=== PATIENT | female | born 1945 | race Caucasian/White ===

== ENCOUNTER 2019-03-31 08:15 | Day surgery (SDC) | payer OTHER ==
[~2019-03-31] VITALS: Ht 162.6 cm; Wt 91.1 kg
[~2019-03-31 08:15] MED LIST: ASCO500 PO; ASPI81CH PO; ATOR20 PO; CHOL10002 PO; DICL75ER PO; FISH OIL PO; FOLATE; IRON PO; MAGNESIUM; MAGNESIUM PO; METAMUCIL0.4 GM PO; POTASSIUM GLUCO90 MG PO; Tambocor100 MG PO; VITAMIN B; VITAMIN B122500 MC1 PO; ZINC PO; Zantac150 MG PO; [UNRECOGNIZED DRUG - OTHER] PO
--- NOTE | 2019-03-31 09:40 | NUR ---
Ambulatory in Day Surgery History, Chart, Medications and Allergies reviewed before start of procedure.Patient confirms NPO status and agrees with scheduled surgery. Lungs clear T/O to Auscultation. Patient reports completing Chlorhexadine shower X2 prior to admission to hospital.Surgical site prepped with 2% Chlorhexidine cloth wipe.
--- NOTE | 2019-03-31 12:30 | NUR ---
1145- 128ML IN BLADDER PER SCANNER.
--- NOTE | 2019-03-31 14:05 | NUR ---
DR INIGUEZ HERE TO SEE PT. FAMILY PRESENT.
--- NOTE | 2019-03-31 19:45 | NUR ---
SHIFT SUMMARY PT HAD PROCEDURE TODAY. PT EATING AND DRINKING, VOIDING. PT BEEN ASSISTED WITH ADL'S PRN. PT AMBULATED IN HALLWAY WITH WALKER, GB, AND ASSIST. PT BEEN MED PRN FOR PAIN. FAMILY IN ROOM MOST OF DAY. TEDS, PAS, POLAR PAC IN PLACE.
--- NOTE | 2019-04-01 04:27 | NUR ---
SHIFT SUMMARY: PT POD #1 FOR RT TKA. MILLA WRAP CDI WITH POLAR PACK IN PLACE. A&O X4 T/O SHIFT, VS WNL. PT OOB SEVERAL TIMES TO BATHROOM W/FWW+GB. VOIDING WELL. CHACHA ACTIVITY. WBAT. PAIN WELL MANAGED WITH 5MG OXY AND SCHED TORADOL + TYLENOL. NO CONCERNS AT THIS TIME.
[2019-04-01 04:40] LABS: BASOPHILS ABSOLUTE AUTO 0.03 K/mm3 (0.00-0.23); BASOPHILS PERCENT AUTO 0 % (0-2); EOSINOPHILS ABSOLUTE AUTO 0.01 K/mm3 (0.00-0.68); EOSINOPHILS PERCENT AUTO 0 % (0-6); Hematocrit 33.5 % (33.0-51.0); Hemoglobin 10.6 g/dL (11.5-16.0); IMMATURE GRAN ABSOLUTE AUTO 0.04 K/mm3 (0.00-0.10); IMMATURE GRAN PERCENT AUTO 0 % (0-1); LYMPHOCYTES ABSOLUTE AUTO 1.49 K/mm3 (0.84-5.20); LYMPHOCYTES PERCENT AUTO 12 % (21-46); MONOCYTES ABSOLUTE AUTO 1.07 K/mm3 (0.16-1.47); MONOCYTES PERCENT AUTO 9 % (4-13); Mean Corpuscular HGB 30.7 pg (26.0-34.0); Mean Corpuscular HGB Conc 31.6 g/dL (31.5-36.5); Mean Corpuscular Volume 97 fL (80-100); Mean Platelet Volume 11.5 fL (9.1-12.4); NEUTROPHILS ABSOLUTE AUTO 9.77 K/mm3 (1.96-9.15); NEUTROPHILS PERCENT AUTO 79 % (41-73); Platelet Count 209 K/mm3 (150-400); RDW Coefficient Variation 13.4 % (11.7-14.2); RDW Standard Deviation 48.2 fL (35.1-46.3); Red Blood Cell Count 3.45 M/mm3 (3.80-5.20); White Blood Cell Count 12.41 K/mm3 (4.00-11.30)
[2019-04-01 04:59] LABS: Anion Gap 5 mmol/L (6-16); Blood Urea Nitrogen 17 mg/dL (8-24); Bun/Creatinine Ratio 20.9 (12.0-20.0); CO2, Blood 27 mmol/L (21-32); Calcium, Blood 8.5 mg/dL (8.5-10.1); Chloride, Blood 109 mmol/L (98-108); Creatinine, Blood 0.81 mg/dL (0.40-1.00); Glomerular Filtration Rate >60 (60-); Glucose, Blood 108 mg/dL (70-99); Potassium, Blood 4.2 mmol/L (3.5-5.5); Sodium, Blood 141 mmol/L (136-145)
[2019-04-01] MEDS ORDERED: Ferrous Sulfat325 M2 PO (08:26)
[2019-04-01] MEDS ORDERED: Percocet 5-3251 EACH PO (08:26)
--- NOTE | 2019-04-01 12:47 | NUR ---
1220 DISCHARGE DISCHARGE INSTRUCTIONS REVIEWED WITH PATIENT AND QUESTIONS ANSWERED. PATIENT DISCHARGED TO [facility] WITH
== END 2019-04-01 12:23 | disposition home or self-care (01) ==
LOC: ORSCMMR 08:15 → ORD 10:00 → ORSCMMR 10:30 → SURS 12:34 → ORSCMMR 22:48 → SURS 23:28 → ORSCMMR 04-01 12:23 → SURS 04-01 12:23
PROVIDERS: Orthopaedic Surgery
PROC: 0SRC0JA Replacement of Right Knee Joint with Synthetic Substitute, Uncemented, Open Approach (ICD-10-PCS; principal; 2019-03-31 10:30)
DX: M17.11 Unilateral primary osteoarthritis, right knee (principal); Z01.818 Encounter for other preprocedural examination; R00.2 Palpitations; K21.9 Gastro-esophageal reflux disease without esophagitis; Z87.891 Personal history of nicotine dependence; Z79.899 Other long term (current) drug therapy; Z79.82 Long term (current) use of aspirin
CPT/HCPCS: 36415; 73560-RT; 80048; 85025; 86850; 86900; 86901; 88300; 97110; 97116; 97162; 97530; C1713; C1776; J0171; J0690; J1100; J1885; J2250; J2405; J2704; J2795; J3010; J7120

== ENCOUNTER 2019-07-07 10:43 | Day surgery (SDC) | payer OTHER ==
[~2019-07-07] VITALS: Ht 162.6 cm; Wt 90.1 kg
[~2019-07-07 10:43] MED LIST changes: +Ferrous Sulfat325 M2 PO; +Percocet 5-3251 EACH PO
--- NOTE | 2019-07-07 11:48 | NUR ---
History, Chart, Medications and Allergies reviewed before start of procedure. Patient confirms NPO status and agrees with scheduled surgery. Lungs clear T/O to Auscultation. Pre-Op teaching done. Pt verbalizes understanding. Patient reports completing Chlorhexadine shower X2 prior to admission to hospital. PATIENT HAD NO JEWELRY ON AT ADMIT TO [facility]. PATIENT STATES THAT LAST TIME SHE WAS HERE SHE WAS ALLOWED TO LEAVE HER DENTURE IN PLACE.
--- NOTE | 2019-07-07 11:52 | NUR ---
REPORT TO WINSTON ROBERT TO RESUME CARE OF PATIENT.
--- NOTE | 2019-07-07 19:17 | NUR ---
SHIFT SUMMARY PT EATING AND DRINKING, VOIDING. CONT TO DENY PAIN. BEEN ASSISTED WITH ADL'S PRN. FAMILY CONT TO BE IN ROOM.
--- NOTE | 2019-07-07 19:19 | NUR ---
PT USING CALL LIGHT APPR. PT HAS TEDS, PAS, AND POLAR PAC IN PLACE.
--- NOTE | 2019-07-08 02:11 | NUR ---
ASSUMED CARE OF PT. PT APPEARS TO BE SLEEPING IN BED, RESP E/U, NO DISTRESS NOTED. WILL CONT TO MONITOR ADN TX PER ORDERS.
[2019-07-08 03:52] LABS: BASOPHILS ABSOLUTE AUTO 0.07 K/mm3 (0.00-0.23); BASOPHILS PERCENT AUTO 1 % (0-2); EOSINOPHILS ABSOLUTE AUTO 0.04 K/mm3 (0.00-0.68); EOSINOPHILS PERCENT AUTO 0 % (0-6); Hematocrit 34.2 % (33.0-51.0); IMMATURE GRAN ABSOLUTE AUTO 0.05 K/mm3 (0.00-0.10); IMMATURE GRAN PERCENT AUTO 1 % (0-1); LYMPHOCYTES PERCENT AUTO 9 % (21-46); MONOCYTES ABSOLUTE AUTO 0.87 K/mm3 (0.16-1.47); MONOCYTES PERCENT AUTO 8 % (4-13); Mean Corpuscular HGB 30.4 pg (26.0-34.0); Mean Corpuscular HGB Conc 32.2 g/dL (31.5-36.5); Mean Platelet Volume 11.9 fL (9.1-12.4); NEUTROPHILS ABSOLUTE AUTO 8.59 K/mm3 (1.96-9.15); NEUTROPHILS PERCENT AUTO 81 % (41-73); Platelet Count 195 K/mm3 (150-400); RDW Coefficient Variation 13.6 % (11.7-14.2); RDW Standard Deviation 47.8 fL (35.1-46.3); Red Blood Cell Count 3.62 M/mm3 (3.80-5.20); White Blood Cell Count 10.62 K/mm3 (4.00-11.30)
[2019-07-08 03:56] LABS: Mean Corpuscular Volume 95 fL (80-100)
[2019-07-08 04:10] LABS: Anion Gap 7 mmol/L (6-16); Blood Urea Nitrogen 16 mg/dL (8-24); Bun/Creatinine Ratio 21.4 (12.0-20.0); CO2, Blood 25 mmol/L (21-32); Calcium, Blood 8.3 mg/dL (8.5-10.1); Chloride, Blood 108 mmol/L (98-108); Creatinine, Blood 0.75 mg/dL (0.40-1.00); Glomerular Filtration Rate >60 (60-); Glucose, Blood 112 mg/dL (70-99); Magnesium, Blood 1.9 mg/dL (1.6-2.4); Potassium, Blood 3.9 mmol/L (3.5-5.5); Sodium, Blood 140 mmol/L (136-145)
--- NOTE | 2019-07-08 04:58 | NUR ---
POD 1 S/P L TKA. PT VSS T/O NIGHT. DRESSINGS CDI. CIRC CHECKS WNL. PAIN MGD PER EMAR W/REP RELIEF. PT CHACHA REG PO, IS VOIDING URINE W/O DIFFICULTY. PT UP OOB W/FWW+SBA; CHACHA WELL. PT USING CALL LIGHT FOR ASSISTANCE, WILL CONT TO MONITOR UNTIL REP GIVEN TO ONCOMING RN.
--- NOTE | 2019-07-08 07:43 | NUR ---
07/08/19 0743 Eli Higgins VERIFICATIONS: EDIT CHART.
[2019-07-08] MEDS ORDERED: Aspirin EC81 MG PO (09:45)
[2019-07-08] MEDS ORDERED: Percocet 5-3251 EACH PO (09:45)
--- NOTE | 2019-07-08 10:39 | NUR ---
DISCHARGE; PT EATING AND DRINKING WELL. PT BEEN SEEN BY DR INIGUEZ AND WAYNE THIS AM. PT BEEN CLEARED BY THERAPY TO GO HOME. PT VOIDING AND PASSING GAS. PT PAIN CONTROLLED ON PO PAIN MEDICATION. PT REPORTS HAVING APPR EQUIP AT HOME AND HAS USED ICE MACHINE AND IS QUITE AWARE OF HOW TO USE IT. PT SENT WITH BELONGINGS AND DRESSING SUPPLIES.
== END 2019-07-08 10:40 | disposition home or self-care (01) ==
LOC: ORSCMMR 10:43 → ORD 12:30 → SURS 15:20 → ORSCMMR 07-08 10:40
PROVIDERS: Orthopaedic Surgery
PROC: 0SRD0JA Replacement of Left Knee Joint with Synthetic Substitute, Uncemented, Open Approach (ICD-10-PCS; principal; 2019-07-07 12:30)
DX: M17.12 Unilateral primary osteoarthritis, left knee (principal); Z01.818 Encounter for other preprocedural examination; I10 Essential (primary) hypertension; I47.1 Supraventricular tachycardia; Z79.899 Other long term (current) drug therapy; Z79.82 Long term (current) use of aspirin; E66.9 Obesity, unspecified; Z68.34 Body mass index [BMI] 34.0-34.9, adult
CPT/HCPCS: 36415; 73560-LT; 80048; 83735; 85025; 86850; 86900; 86901; 88300; 97110; 97116; 97161; C1776; J0171; J0690; J0735; J1885; J2250; J2405; J2704; J2795; J7120

== ENCOUNTER 2019-11-10 04:46 | Emergency (ER) | payer OTHER ==
[~2019-11-10] VITALS: Ht 165.1 cm; Wt 90.3 kg
[~2019-11-10 04:46] MED LIST changes: +Aspirin EC81 MG PO
[2019-11-10] MEDS ORDERED: DICL25ER PO (05:00)
[2019-11-10] MEDS ORDERED: "\\\"STATIN\\\"" (05:01)
[2019-11-10 08:08] LABS: BASOPHILS ABSOLUTE AUTO 0.11 K/mm3 (0.00-0.23); BASOPHILS PERCENT AUTO 1 % (0-2); EOSINOPHILS ABSOLUTE AUTO 0.15 K/mm3 (0.00-0.68); EOSINOPHILS PERCENT AUTO 2 % (0-6); Hematocrit 42.7 % (33.0-51.0); Hemoglobin 13.8 g/dL (11.5-16.0); IMMATURE GRAN ABSOLUTE AUTO 0.03 K/mm3 (0.00-0.10); IMMATURE GRAN PERCENT AUTO 0 % (0-1); LYMPHOCYTES ABSOLUTE AUTO 2.13 K/mm3 (0.84-5.20); LYMPHOCYTES PERCENT AUTO 24 % (21-46); MONOCYTES ABSOLUTE AUTO 0.54 K/mm3 (0.16-1.47); MONOCYTES PERCENT AUTO 6 % (4-13); Mean Corpuscular HGB 30.3 pg (26.0-34.0); Mean Corpuscular HGB Conc 32.3 g/dL (31.5-36.5); Mean Corpuscular Volume 94 fL (80-100); Mean Platelet Volume 11.7 fL (9.1-12.4); NEUTROPHILS ABSOLUTE AUTO 6.05 K/mm3 (1.96-9.15); NEUTROPHILS PERCENT AUTO 67 % (41-73); Platelet Count 258 K/mm3 (150-400); RDW Coefficient Variation 14.5 % (11.7-14.2); RDW Standard Deviation 49.8 fL (35.1-46.3); Red Blood Cell Count 4.56 M/mm3 (3.80-5.20); White Blood Cell Count 9.01 K/mm3 (4.00-11.30)
[2019-11-10 08:58] LABS: Alanine Aminotransfer (ALT/SGP 17 U/L (12-78); Albumin, Blood 3.4 g/dL (3.4-5.0); Albumin/Globulin Ratio 1.1 (0.8-1.8); Alk Phos 130 U/L (50-136); Anion Gap 6 mmol/L (6-16); Aspartate Aminotrans (AST/SGOT 17 U/L (12-37); Bilirubin, Total 0.7 mg/dL (0.1-1.0); Blood Urea Nitrogen 12 mg/dL (8-24); Bun/Creatinine Ratio 17.5 (12.0-20.0); CO2, Blood 25 mmol/L (21-32); Calcium, Blood 9.1 mg/dL (8.5-10.1); Chloride, Blood 110 mmol/L (98-108); Creatinine, Blood 0.69 mg/dL (0.40-1.00); Globulin, Blood 3.2 g/dL (2.2-4.0); Glomerular Filtration Rate >60 (60-); Glucose, Blood 83 mg/dL (70-99); Potassium, Blood 3.9 mmol/L (3.5-5.5); Sodium, Blood 141 mmol/L (136-145); Total Protein, Blood 6.6 g/dL (6.4-8.2)
[2019-11-10] MEDS ORDERED: Miralax17 GM PO (09:08)
[2019-12-15] MEDS ORDERED: OMEPRAZOLE20 MG PO (10:55)
[2019-12-15] MEDS ORDERED: CENTRUM SILVER1 EAC2 PO (10:56)
[2019-12-15] MEDS ORDERED: FISH OIL 1,0001 EAC1 PO (10:58)
== END 2019-11-10 09:23 | disposition home or self-care (01) ==
LOC: ER 04:46
PROVIDERS: Emergency Medicine
DX: K59.00 Constipation, unspecified (principal); Z88.5 Allergy status to narcotic agent; Z79.899 Other long term (current) drug therapy; Z79.82 Long term (current) use of aspirin
CPT/HCPCS: 36415; 74018; 80053; 85025; 96360; 99283-25; J7120

== ENCOUNTER → 2019-11-27 | Outpatient (CLI) | payer OTHER ==
[~2019-11-27] MED LIST changes: +"\\\"STATIN\\\""; +CENTRUM SILVER1 EAC2 PO; +DICL25ER PO; +FISH OIL 1,0001 EAC1 PO; +METAMUCIL660 GM PO; +Miralax17 GM PO; +OMEPRAZOLE20 MG PO
== END | disposition home or self-care (01) ==
LOC: LAB SHORT 11:05 → LAB 11:05
DX: R10.12 Left upper quadrant pain (principal)
CPT/HCPCS: 87338

== ENCOUNTER 2019-12-19 07:01 | Day surgery (SDC) | payer OTHER ==
[~2019-12-19] VITALS: Ht 162.6 cm; Wt 90.0 kg
[~2019-12-19 07:01] MED LIST changes: -METAMUCIL660 GM PO
[2019-12-19] MEDS ORDERED: METAMUCIL660 GM PO (07:20)
--- NOTE | 2019-12-19 08:15 | NUR ---
12/19/19 0815 Jordon Priest History, Chart, Medications and Allergies reviewed before start of procedure.MONITOR INTACT WITH CONTINUOUS PULSE OXIMETRY AND INTERMITTENT BP.3-LEAD EKG REVIEWED WITH PHYSICIAN PRIOR TO START OF PROCEDURE.O2 VIA N/C INTACT THROUGHOUT SEDATION/PROCEDURE. Patient confirms NPO status and agrees with scheduled surgery.PATIENT DETERMINED TO BE ASA APPROPRIATE FOR PROPOFOL SEDATION PRIOR TO START OF PROCEDURE BY DR. KARIMI.
--- NOTE | 2019-12-19 08:56 | NUR ---
IV DC TIP INTACT. PT AMBULATED TO BATHROOM AND BACK -STEADY ON FEET. OUT TO GET CAR. PT DC HOME VIA WC WITH TO DRIVE HER.
== END 2019-12-19 22:43 | disposition home or self-care (01) ==
LOC: ORSCMMR 07:01 → ORD 08:00 → ORSCMMR 08:00
PROVIDERS: Internal Medicine Gastroenterology
PROC: 0DB88ZX Excision of Small Intestine, Via Natural or Artificial Opening Endoscopic, Diagnostic (ICD-10-PCS; principal; 2019-12-19 08:00)
PROC: 0DB68ZX Excision of Stomach, Via Natural or Artificial Opening Endoscopic, Diagnostic (ICD-10-PCS; principal; 2019-12-19 08:00)
DX: R10.13 Epigastric pain (principal); Z98.84 Bariatric surgery status; I47.9 Paroxysmal tachycardia, unspecified; I25.10 Atherosclerotic heart disease of native coronary artery without angina pectoris; E78.00 Pure hypercholesterolemia, unspecified; Z87.891 Personal history of nicotine dependence; Z79.82 Long term (current) use of aspirin; Z79.899 Other long term (current) drug therapy
CPT/HCPCS: 88305; 88342; J2704; J7120

== ENCOUNTER 2020-01-07 11:11 | Inpatient (IN) | payer OTHER ==
[~2020-01-07] VITALS: Ht 162.6 cm; Wt 89.4 kg
[~2020-01-07 11:11] MED LIST changes: -CHOL10002 PO; +METAMUCIL660 GM PO; +VITAMIN B-121000 MC3 PO; -VITAMIN B122500 MC1 PO; +VITAMIN D35000 UNI2 PO
[2020-01-07 11:44] LABS: BASOPHILS ABSOLUTE AUTO 0.14 K/mm3 (0.00-0.23); BASOPHILS PERCENT AUTO 2 % (0-2); EOSINOPHILS ABSOLUTE AUTO 0.27 K/mm3 (0.00-0.68); EOSINOPHILS PERCENT AUTO 3 % (0-6); Hematocrit 44.2 % (33.0-51.0); Hemoglobin 14.1 g/dL (11.5-16.0); IMMATURE GRAN ABSOLUTE AUTO 0.02 K/mm3 (0.00-0.10); IMMATURE GRAN PERCENT AUTO 0 % (0-1); LYMPHOCYTES ABSOLUTE AUTO 2.85 K/mm3 (0.84-5.20); LYMPHOCYTES PERCENT AUTO 32 % (21-46); MONOCYTES ABSOLUTE AUTO 0.64 K/mm3 (0.16-1.47); MONOCYTES PERCENT AUTO 7 % (4-13); Mean Corpuscular HGB 31.1 pg (26.0-34.0); Mean Corpuscular HGB Conc 31.9 g/dL (31.5-36.5); Mean Corpuscular Volume 98 fL (80-100); NEUTROPHILS PERCENT AUTO 56 % (41-73); Platelet Count 263 K/mm3 (150-400); RDW Coefficient Variation 14.6 % (11.7-14.2); RDW Standard Deviation 52.8 fL (35.1-46.3); Red Blood Cell Count 4.53 M/mm3 (3.80-5.20); White Blood Cell Count 8.92 K/mm3 (4.00-11.30)
[2020-01-07 11:55] LABS: Alanine Aminotransfer (ALT/SGP 21 U/L (12-78); Albumin, Blood 3.5 g/dL (3.4-5.0); Alk Phos 139 U/L (50-136); Anion Gap 7 mmol/L (6-16); Aspartate Aminotrans (AST/SGOT 23 U/L (12-37); Bilirubin, Total 0.5 mg/dL (0.1-1.0); Blood Urea Nitrogen 20 mg/dL (8-24); Bun/Creatinine Ratio 22.9 (12.0-20.0); CO2, Blood 24 mmol/L (21-32); Calcium, Blood 9.1 mg/dL (8.5-10.1); Chloride, Blood 112 mmol/L (98-108); Creatinine, Blood 0.87 mg/dL (0.40-1.00); Globulin, Blood 3.4 g/dL (2.2-4.0); Glomerular Filtration Rate >60 (60-); Glucose, Blood 97 mg/dL (70-99); Magnesium, Blood 2.1 mg/dL (1.6-2.4); Potassium, Blood 4.2 mmol/L (3.5-5.5); Sodium, Blood 143 mmol/L (136-145); Total Protein, Blood 6.9 g/dL (6.4-8.2)
[2020-01-07 11:56] LABS: Troponin I <0.015 ng/mL (0.000-0.040)
[2020-01-07 14:35] LABS: U Amphetamine Screen Not Detected; U Barbituate Screen Not Detected; U Benzodiazapine Screen Not Detected; U Buprenorphine Screen Not Detected; U Cannabinoids Screen Not Detected; U Cocaine Screen Not Detected; U Methadone Screen Not Detected; U Methamphetamine Screen Not Detected; U Opiates Screen Not Detected; U Oxycodone Screen Not Detected; U Phencyclidine Screen Not Detected; U Propoxyphene Screen Not Detected
--- NOTE | 2020-01-07 17:53 | NUR ---
SUMMARY PT IS CURRENTLY SITTING UP IN BED EATING DINNER AND VISITING WITH HER AT THE BEDSIDE. PT DENIES CP/SOB, VSS, ON ROOM AIR, HR NSR AT THIS TIME, AMIODORONE GTT INFUSING @ 1MG/MIN PER EMAR. PT WILL BE NPO @ 0000 FOR ECHO/STRESS TEST IN THE AM. PT IS A&O X4. CALL LIGHT IN REACH,[facility] AND REPORT TO DAYANARA ROBERT.
--- NOTE | 2020-01-07 20:30 | NUR ---
ASSUMED CARE APPROXIMATELY 1900; PT A&O; LAUGHING W/ SPOUSE AT BEDSIDE; PT DENIES CHEST PAIN; DENIES SOB; O2 SATS >94 ON RA; PT EDUCATED ON NPO STATUS AT MIDNIGHT; PT EDUCATED ON AMIODORONE GTT @ 0.5; DR. CRAMER NOTIFIED @ 2024 OF HR OF 49-57 NOTED ON TELE; PT ASSYMPTOMATIC; ORDERS TO MAINTAIN AMIO GTT; FAMILY CURRENTLY AT BEDSIDE; PT DENIES NEEDS; CALL LIGHT IN REACH; BED IN LOWEST POSITION
[2020-01-08 04:25] LABS: Hematocrit 35.3 % (33.0-51.0); Hemoglobin 11.2 g/dL (11.5-16.0); Mean Corpuscular HGB 30.7 pg (26.0-34.0); Mean Corpuscular HGB Conc 31.7 g/dL (31.5-36.5); Mean Corpuscular Volume 97 fL (80-100); Platelet Count 195 K/mm3 (150-400); RDW Coefficient Variation 14.7 % (11.7-14.2); Red Blood Cell Count 3.65 M/mm3 (3.80-5.20); White Blood Cell Count 8.19 K/mm3 (4.00-11.30)
[2020-01-08 04:46] LABS: Alanine Aminotransfer (ALT/SGP 17 U/L (12-78); Albumin, Blood 2.9 g/dL (3.4-5.0); Albumin/Globulin Ratio 1.1 (0.8-1.8); Alk Phos 105 U/L (50-136); Anion Gap 3 mmol/L (6-16); Aspartate Aminotrans (AST/SGOT 22 U/L (12-37); Bilirubin, Total 0.4 mg/dL (0.1-1.0); Blood Urea Nitrogen 22 mg/dL (8-24); Bun/Creatinine Ratio 25.4 (12.0-20.0); CO2, Blood 27 mmol/L (21-32); Calcium, Blood 8.5 mg/dL (8.5-10.1); Chloride, Blood 113 mmol/L (98-108); Creatinine, Blood 0.87 mg/dL (0.40-1.00); Globulin, Blood 2.7 g/dL (2.2-4.0); Glomerular Filtration Rate >60 (60-); Glucose, Blood 85 mg/dL (70-99); Magnesium, Blood 2.2 mg/dL (1.6-2.4); Potassium, Blood 4.2 mmol/L (3.5-5.5); Sodium, Blood 143 mmol/L (136-145); Total Protein, Blood 5.6 g/dL (6.4-8.2)
--- NOTE | 2020-01-08 05:35 | NUR ---
SHIFT SUMMARY PT A&O; VSS; O2 SATS >93 ON RA; PT SLEPT A FEW HOURS AFTER FAMILY LEFT; C/O PAIN W/ IV; VESSEL CAPTAIN STARTED NEW IV; AMIODORONE GTT CONTINUED @ 0.5; DENIES CHEST PAIN; VOIDING W/ NO DIFF; CALL LIGHT IN REACH; BED IN LOWEST POSITION; WILL MONITOR CLOSELY UNTIL HAND OFF TO DAY SHIFT RN.
--- NOTE | 2020-01-08 08:07 | NUR ---
CARE ASSUMED ASSESSMENT COMPLETED, PT A&OX4, APPROPRIATE AND COOPERATIVE, INDEPENDENT IN ROOM. DENIES CHEST/ARM/JAW PAIN/DISCOMFORT, DENIES SOB AND PALPITATIONS. HR 50'S NSR PER TELE, AMIO INFUSING AT 0.5MG/MIN PER ORDERS. PT UP TO BR, GAIT STEADY, TO LEARNING ENGINEER FOR ANGIO AT 0740.
--- NOTE | 2020-01-08 09:53 | NUR ---
UPDATE 0840: PT BACK FROM SPOOL SALVAGER AFTER ANGIO WITH RIGHT RADIAL ACCESS, TR BAND IN PLACE, SITE WNL, RIGHT FINGERS WARM TO TOUCH, CAP REFILL WNL, NO BLEEDING NOTED. WRIST IMMOBILIZER IN PLACE, PT AWARE OF AND AGREEABLE TO PRECAUTIONS. REPORT RECEIVED, PT ALERT AND ORIENTED X4, VSS. 1000: PT ATE BREAKFAST WITHOUT DIFFICULTY, TOLERATED PO MEDS WELL, REMAINS ALERT AND ORIENTED X4, SITTING UP WATCHING TV AND TALKING ON PHONE, DENIES PAIN OR C/O. RIGHT RADIAL ACCESS SITE REMAINS WNL.
--- NOTE | 2020-01-08 11:38 | NUR ---
UPDATE ECHO COMPLETED, TR BAND REMOVED PER PROTOCOL WITH NO BLEEDING/HEMATOMA NOTED, CAP REFILL TO DISTAL HAND WNL, HAND WARM TO TOUCH, RADIAL PULSE STRONG, PT STATES SENSATION IS WNL, IMMOBILIZATION BOARD REMAINS ON RIGHT WRIST. PT SITTING UP IN BED, DENIES C/O, REMAINS IN NSR.
--- NOTE | 2020-01-08 12:12 | NUR ---
UPDATE AMIO INFUSION SHUT OFF AT THIS TIME, HAS BEEN INFUSING FOR [address] CRAMER FOR ARRYTHMIA MANAGEMENT ORDERS. PT REMAINS IN NSR.
--- NOTE | 2020-01-08 13:09 | NUR ---
UPDATE PT UP TO BR FOR BM, AMBULATING INDEPENDENTLY. RIGHT RADIAL ACCESS SITE REMAINS WNL, DRESSING CDI, ARM BOARD IN PLACE. PT TOELRATONG FOOD WITHOUT DIFFICULTY, DENIES PALPITAIONS OR CHEST/JAW/NECK DISCOMFORT. DR. CRAMER AT BEDSIDE, NEW ORDERS RECEIVED FOR PO AMIODARONE, WILL ADMINISTER PER JAN.
--- NOTE | 2020-01-08 13:20 | NUR ---
echocardiogram complete
--- NOTE | 2020-01-08 18:29 | NUR ---
END OF SHIFT PT SITTING IN BED VISITING WITH AT BEDSIDE, DENIES C/O OR NEEDS. PT DENIED PALPITATIONS, SOB, AND CHEST/NECK/JAW/ARM DISCOMFORT T/O SHIFT, WAS IN NSR PER TELE, HR 50'S-60'S, OTHER VSS. RIGHT RADIAL ACCESS SITE WNL AT THIS TIME, DRESSING CDI, IMMOBILIZATION WRIST BOARD REMAINS IN PLACE, PT COMPLIANT WITH PRECAUTIONS. PT INDEPENENT IN ROOM, GAIT STEADY. PT AWARE OF PLAN FOR TENTATIVE DC TOMORROW, HOME MEDICATION CHANGES, AND PLAN FOR OUTPATIENT F/U FOR EP STUDY. REPORT TO ONCOMING SHIFT.
--- NOTE | 2020-01-08 19:51 | NUR ---
ASSUMED CARE APPROXIMATELY 1900; PT A&O; SPOUSE AT BEDSIDE; PT LAUGHING AND VISITING; R RADIAL SITE C/D/I; ARM BOARD IN PLACE; O2 SATS >93 ON SECOND DIGIT; FINGERS WARM; VSS; DENIES CHEST PAIN; DENIES NEEDS; COMPLIANT W/ CARE; CALL LIGHT IN REACH; BED IN LOWEST POSITION.
[2020-01-09] MEDS ORDERED: Amiodarone HCl200 MG PO (10:11)
--- NOTE | 2020-01-09 10:13 | NUR ---
PENDING DISCHARGE DR SENIOR IS GOING TO DISCHARGE PT HOME. [facility]. CONTINUE POT.
--- NOTE | 2020-01-09 11:30 | NUR ---
DISCHARGE HOME PT DISCHARGED HOME. IV REMOVED. PT HAS A PRE ARRANGED APPOINTMENT WITH HER PCP AT THWE END OF THE MONTH. CONTINUE POT.
== END 2020-01-09 11:25 | disposition home or self-care (01) | DRG 309 ==
LOC: ER 11:11 → PCU 11:12
PROVIDERS: Emergency Medicine; Nurse Practitioner Acute Care; ADMIT Internal Medicine
DX: I47.2 Ventricular tachycardia (principal); Q21.1 Atrial septal defect; Z87.891 Personal history of nicotine dependence; Z98.84 Bariatric surgery status; E78.5 Hyperlipidemia, unspecified; K21.9 Gastro-esophageal reflux disease without esophagitis; I44.0 Atrioventricular block, first degree
CPT/HCPCS: 36415; 71045; 80053; 83735; 83880; 84443; 84484; 85025; 85027; 93005; 93010; 93306; 93454; 96361; 96365; 96376; 99152; 99285-25; C1769; C1894; J0153; J0282; J1644; J1650; J2250; J3010; J7030; Q9967

== ENCOUNTER 2020-03-05 11:27 | Day surgery (SDC) | payer OTHER ==
[~2020-03-05] VITALS: Ht 162.6 cm; Wt 91.8 kg
[~2020-03-05 11:27] MED LIST changes: +Amiodarone HCl200 MG PO
[2020-03-05] MEDS ORDERED: FLECAINIDE ACE150 MG PO (11:58)
[2020-03-05] MEDS ORDERED: ELIQUIS5 MG PO (11:59)
[2020-03-05] MEDS ORDERED: METO50ER PO (12:01)
[2020-03-05] MEDS ORDERED: FURO20 (12:01)
--- NOTE | 2020-03-05 13:07 | NUR ---
PT ALERT ORIENTED, TALKING WITH STAFF. DRESSES SELF, TO BATHROOM. DISCHARGE GONE OVER WITH PT, PT VERBALIZES UNDERSTANDING. PT TO PRIVATE VEHICLE PER ONE STAFF.
== END 2020-03-05 23:11 | disposition home or self-care (01) ==
LOC: MHTC 11:27
DX: I48.92 Unspecified atrial flutter (principal); I47.2 Ventricular tachycardia; I48.0 Paroxysmal atrial fibrillation; E78.5 Hyperlipidemia, unspecified; Z87.891 Personal history of nicotine dependence; Z88.5 Allergy status to narcotic agent; Z79.899 Other long term (current) drug therapy; Z79.01 Long term (current) use of anticoagulants
CPT/HCPCS: 92960; 93005; 93010; 99152; J2250; J3010; J7030

== ENCOUNTER 2023-12-09 13:02 | Emergency (ER) | payer OTHER ==
[~2023-12-09] VITALS: Ht 162.6 cm; Wt 90.7 kg
[~2023-12-09 13:02] MED LIST changes: +ELIQUIS5 MG PO; +FLECAINIDE ACE150 MG PO; +FURO20; +METO50ER PO
[2023-12-09 13:42] LABS: Hematocrit 43.8 % (33.0-51.0); Hemoglobin 13.7 g/dL (11.5-16.0); Mean Corpuscular HGB 30.1 pg (26.0-34.0); Mean Corpuscular HGB Conc 31.3 g/dL (31.5-36.5); Mean Corpuscular Volume 96 fL (80-100); Mean Platelet Volume 11.8 fL (9.1-12.4); Platelet Count 225 K/mm3 (150-400); RDW Coefficient Variation 13.8 % (11.7-14.2); RDW Standard Deviation 49.3 fL (35.1-46.3); Red Blood Cell Count 4.55 M/mm3 (3.80-5.20)
[2023-12-09 14:01] LABS: White Blood Cell Count 8.61 K/mm3 (4.00-11.30)
[2023-12-09 14:18] LABS: BASOPHILS ABSOLUTE MAN 0.17 K/mm3 (0.00-0.23); BASOPHILS PERCENT MAN 2 % (0-2); EOSINOPHILS ABSOLUTE MAN 0.08 K/mm3 (0.00-0.68); EOSINOPHILS PERCENT MAN 1 % (0-6); LYMPHOCYTES ABSOLUTE MAN 3.01 K/mm3 (0.84-5.20); LYMPHOCYTES PERCENT MAN 35 % (21-46); MONOCYTES ABSOLUTE MAN 0.08 K/mm3 (0.16-1.47); MONOCYTES PERCENT MAN 1 % (4-13); NEUTROPHILS ABSOLUTE MAN 5.25 K/mm3 (1.96-9.15); SEG NEUTROPHILS PERCENT MAN 61 % (41-73); TOTAL CELLS COUNTED 100
[2023-12-09 15:20] LABS: Albumin, Blood 3.3 g/dL (3.4-5.0); Albumin/Globulin Ratio 0.9 (0.8-1.8); Bilirubin, Total 0.3 mg/dL (0.1-1.0); Bun/Creatinine Ratio 26.7 (12.0-20.0); Creatinine, Blood 0.82 mg/dL (0.40-1.00); Globulin, Blood 3.7 g/dL (2.2-4.0); Potassium, Blood 3.9 mmol/L (3.5-5.5)
[2023-12-09 17:30] VITALS: BP 107/59
== END 2023-12-09 17:51 | disposition home or self-care (01) ==
LOC: ER 13:02
PROVIDERS: Student in an Organized Health Care Education/Training Program
DX: R00.2 Palpitations (principal); Z95.810 Presence of automatic (implantable) cardiac defibrillator; Z87.891 Personal history of nicotine dependence
CPT/HCPCS: 71046; 80053; 84484; 85025; 93005; 93010; 99285-25

== ENCOUNTER → 2024-01-25 | Outpatient (CLI) | payer OTHER | LOC: LAB SHORT 09:50 → LAB 09:50 | DX: N39.0 Urinary tract infection, site not specified (principal) | CPT/HCPCS: 87086 ==

== ENCOUNTER 2024-08-23 13:03 | Emergency (ER) | payer OTHER ==
[~2024-08-23] VITALS: Ht 165.1 cm; Wt 88.5 kg
[2024-08-23 14:30] VITALS: BP 139/89
== END 2024-08-23 15:48 | disposition home or self-care (01) ==
LOC: ER 13:03
DX: S01.111A Laceration without foreign body of right eyelid and periocular area, initial encounter (principal); S01.81XA Laceration without foreign body of other part of head, initial encounter; E78.5 Hyperlipidemia, unspecified; K21.9 Gastro-esophageal reflux disease without esophagitis; W01.0XXA Fall on same level from slipping, tripping and stumbling without subsequent striking against object, initial encounter; Z87.891 Personal history of nicotine dependence; Z79.899 Other long term (current) drug therapy; Z88.5 Allergy status to narcotic agent
CPT/HCPCS: 12011; 70450; 73562-LT; 99284-25